=== PATIENT | male | born 2000 | race Caucasian/White ===

== ENCOUNTER 2021-03-31 17:47 | Inpatient (IN) | payer SELFPAY ==
[2021-03-31] MEDS ORDERED: Fentanyl 100 MCG/2 ML VIAL ONE (21:02)
[2021-03-31] MEDS ORDERED: Ketorolac Tromethamine 30 MG/ML VIAL ONE (21:02)
[2021-03-31 21:11] LABS: #Basophils 0.1 thou/uL (0.0-0.2); #Eosinphils 0.1 thou/uL (0.0-0.7); #Monocytes 0.5 thou/uL (0.11-0.59); #Neutrophils 6.6 thou/uL (1.40-6.50); %Basophils 0.8 % (0.0-1.0); %Eosinophils 0.6 % (0.0-10.0); %Lymphocytes 22.1 % (28.0-48.0); %Monocytes 5.4 % (0.0-4.0); %Neutrophils 71.2 % (31.0-61.0); Hemoglobin 14.9 g/dL (14.0-18.0); Mean Corpuscular HGB CONC 33.7 g/dL (32.0-36.0); Mean Corpuscular Hemoglobin 30.6 pg (25.0-35.0); Mean Corpuscular Volume 90.8 fL (78.0-98.0); Mean Platelet Volume 6.8 fL (7.4-10.4); Platelet Count 431 thou/uL (130-400); RBC Distribution Width 11.5 % (11.5-14.5); Red Blood Cell (RBC) Count 4.86 mill/uL (4.00-5.20); White Blood Cell (WBC) Count 9.2 thou/uL (4.8-10.8)
[2021-03-31 21:21] LABS: Prothrombin Time 13.7 sec (12.0-14.7)
[2021-03-31 21:22] LABS: PTT 28.8 sec (22.9-36.1)
[2021-03-31 21:26] LABS: ALT (SGPT) 43 U/L (8-55); AST (SGOT) 39 U/L (5-34); Albumin 4.6 g/dL (3.5-5.0); Alkaline Phosphatase 75 U/L (50-130); Anion Gap 14 mmol/L (10-20); BUN (Urea Nitrogen) 8 mg/dL (8.9-20.6); Bilirubin, Total 0.8 mg/dL (0.2-1.2); Calc. Creatinine Clearance 0 mL/min (70-130); Calcium 9.9 mg/dL (7.8-10.44); Carbon Dioxide 26 mmol/L (22-29); Chloride 102 mmol/L (98-107); Globulin 3.2 g/dL (2.4-3.5); Glucose 90 mg/dL (70-105); Potassium 4.2 mmol/L (3.5-5.1); Protein, Total 7.8 g/dL (6.0-8.3); Sodium 138 mmol/L (136-145)
[2021-03-31] MEDS ORDERED: Morphine 4 MG/ML VIAL SLOW IVP PRN (21:36)
[2021-03-31] MEDS ORDERED: Ondansetron ODT 4 MG TAB SL PRN (21:45)
[2021-03-31] MEDS ORDERED: hydrALAZINE 20 MG/ML VIAL SLOW IVP PRN (21:45)
[2021-03-31] MEDS ORDERED: Dextrose 50% Abboject 50 ML SYRINGE SLOW IVP PRN (21:45)
[2021-03-31] MEDS ORDERED: Ondansetron PF 4 MG/2 ML Vial IVP PRN ×2 (21:45)
[2021-03-31] MEDS ORDERED: Dextrose 5% in Water 1,000 ML IV PRN (21:45)
[2021-03-31] MEDS ORDERED: D5 1/2 NS w/20 mEq KCL 1,000 ML IV SCH (21:45)
[2021-03-31] MEDS ORDERED: Cyclobenzaprine 10 MG TAB PO PRN (21:47)
[2021-03-31] MEDS ORDERED: traMADol HCl 50 MG TAB PO PRN ×2 (21:47)
[2021-03-31 22:57] LABS: SARS-CoV-2 NAA Rapid Test DETECTED (NotDetected)
[2021-04-01 00:15] VITALS: BMI 20.9
[2021-04-01] MEDS: Ibuprofen 200 MG TAB PO SCH ×3 (00:18→14:43)
[2021-04-01] MEDS: Acetaminophen 500 MG TAB PO SCH ×3 (00:19→10:00)
[2021-04-01] MEDS: Morphine 4 MG/ML VIAL SLOW IVP PRN ×2 (00:24→07:28)
[2021-04-01 07:26] LABS: #Basophils 0.1 thou/uL (0.0-0.2); #Eosinphils 0.2 thou/uL (0.0-0.7); #Lymphocytes 3.2 thou/uL (1.20-3.40); #Monocytes 0.7 thou/uL (0.11-0.59); #Neutrophils 4.4 thou/uL (1.40-6.50); %Eosinophils 1.9 % (0.0-10.0); %Monocytes 8.4 % (0.0-4.0); %Neutrophils 51.7 % (31.0-61.0); Hemoglobin 13.4 g/dL (14.0-18.0); Mean Corpuscular HGB CONC 33.4 g/dL (32.0-36.0); Mean Corpuscular Hemoglobin 30.7 pg (25.0-35.0); Mean Corpuscular Volume 91.8 fL (78.0-98.0); Mean Platelet Volume 7.3 fL (7.4-10.4); Platelet Count 362 thou/uL (130-400); RBC Distribution Width 11.6 % (11.5-14.5); Red Blood Cell (RBC) Count 4.37 mill/uL (4.00-5.20); White Blood Cell (WBC) Count 8.6 thou/uL (4.8-10.8)
[2021-04-01 08:03] LABS: Anion Gap 16 mmol/L (10-20); BUN (Urea Nitrogen) 12 mg/dL (8.9-20.6); Calc. Creatinine Clearance 154 mL/min (70-130); Carbon Dioxide 24 mmol/L (22-29); Chloride 104 mmol/L (98-107); Glucose 100 mg/dL (70-105); Magnesium 1.9 mg/dL (1.7-2.2); Phosphorus 4.3 mg/dL (2.3-4.7); Potassium 3.9 mmol/L (3.5-5.1); Sodium 140 mmol/L (136-145)
[2021-04-01] MEDS ORDERED: Polyethylene Glycol 3350 17 GM Packet PO SCH (09:00)
[2021-04-01] MEDS: Gabapentin 300 MG CAP PO SCH ×2 (09:00→14:42)
[2021-04-01] MEDS ORDERED: Senokot S 8.6-50 MG TAB PO SCH (09:00)
[2021-04-01] MEDS ORDERED: Famotidine 20 MG TAB PO SCH (09:00)
[2021-04-01] MEDS ORDERED: Fentanyl 100 MCG/2 ML VIAL ONE ×2 (10:56→13:56)
[2021-04-01] MEDS ORDERED: Midazolam HCl 2 mg/2 ml Vial ONE (10:56)
[2021-04-01] MEDS ORDERED: Dexmedetomidine 200 MCG/2 ML VIAL ONE (10:56)
[2021-04-01] MEDS ORDERED: ceFAZolin 2 GM/DEX 5% 100 ML BAG ONE (11:57)
[2021-04-01] MEDS ORDERED: Glycopyrrolate 0.2 MG/ML 5 ML SYRINGE ONE (12:28)
[2021-04-01] MEDS ORDERED: PHENYLEPHRINE-NS 100 MCG/ML 10 ML SYRINGE ONE (12:28)
[2021-04-01] MEDS ORDERED: Dexamethasone 20 MG/5 ML VIAL ONE (12:28)
[2021-04-01] MEDS ORDERED: PROPOFOL 200 MG/20 ML VIAL ONE (12:28)
[2021-04-01] MEDS ORDERED: ePHEDrine 50 MG/ML VIAL ONE (12:28)
[2021-04-01] MEDS ORDERED: Ondansetron PF 4 MG/2 ML Vial ONE (12:28)
[2021-04-01] MEDS ORDERED: Ketorolac Tromethamine 30 MG/ML VIAL ONE (12:28)
[2021-04-01] MEDS ORDERED: Lidocaine 1% PF 5 ML VIAL ONE ×2 (12:28)
[2021-04-01] MEDS ORDERED: Bupivacaine PF 0.5% 30 ML VIAL ONE (13:14)
[2021-04-01] MEDS ORDERED: EPINEPHrine 1 MG/ML AMP ONE (13:14)
[2021-04-01] MEDS ORDERED: HYDROcodone/Acetaminophen 10/325 mg Tablet PO PRN ×2 (13:39)
[2021-04-01] MEDS ORDERED: Promethazine HCl 25 MG/ML VIAL IVPB PRN (13:43)
[2021-04-01] MEDS ORDERED: Promethazine HCl 25 MG/ML VIAL IM PRN (13:43)
[2021-04-01] MEDS ORDERED: HYDROmorphone 2 MG/ML VIAL SLOW IVP PRN (13:43)
[2021-04-01] MEDS ORDERED: Ondansetron HCl/PF 4 MG/2 ML Vial IVP PRN (13:43)
[2021-04-01] MEDS ORDERED: TETANUS AND DIPHTHERIA TOX/PF 0.5 ML DISP.SYRIN IM SCH (13:45)
[2021-04-01] MEDS ORDERED: Communication Order-Pharmacy FS SCH (13:45)
[2021-04-01] MEDS ORDERED: Morphine 4 MG/ML VIAL SLOW IVP PRN (14:18)
[2021-04-01] MEDS ORDERED: Ketorolac Tromethamine 30 MG/ML VIAL IVP SCH (18:00)
[2021-04-01] MEDS ORDERED: ceFAZolin 2 GM/Dextrose 50 ML 2 GM in Premix Bag 1 BAG IVPB SCH (20:00)
[2021-04-01 20:01] VITALS: BP 137/77; TEMP 97.6
[2021-04-01] MEDS ORDERED: Aspirin 81 mg Enteric Coated Tablet PO SCH (21:00)
[2021-04-01] MEDS ORDERED: Cephalexin 250 MG CAP PO SCH (23:59)
== END 2021-04-01 21:12 | disposition home or self-care (01) | DRG 492 ==
LOC: ERS 17:47 → SJJU 21:48
PROVIDERS: ADMIT Surgery; ATTEND Surgery
PROC: 8E0ZXY6 Isolation (ICD-10-PCS; 2021-03-31)
PROC: 0QSJ04Z Reposition Right Fibula with Internal Fixation Device, Open Approach (ICD-10-PCS; principal; 2021-04-01)
DX: S82.851A Displaced trimalleolar fracture of right lower leg, initial encounter for closed fracture (principal); U07.1 COVID-19; F12.10 Cannabis abuse, uncomplicated; W50.2XXA Accidental twist by another person, initial encounter; Y93.67 Activity, basketball
CPT/HCPCS: 36415; 71045; 76000; 80048; 80053; 83735; 84100; 85025; 85610; 85730; 93005; C1713; J0171; J0690; J1100; J1885; J2250; J2270; J2405; J2704; J3010; J3490; S0020; U0002